=== PATIENT | female | born 1980 | race African-American/Black ===

== ENCOUNTER 2019-01-29 08:00 | Inpatient (IN) | payer OTHER ==
[2019-01-29 09:10] LABS: BASO % 0.8 % (0-2.0); EOS % 1.2 % (0-4.5); HEMATOCRIT 26.9 % (32.4-45.2); HEMOGLOBIN 8.7 GM/dL (10.7-15.3); LYMPH % 28.6 % (8-40); MCH 27.3 pg (25.7-33.7); MCHC 32.3 g/dl (32.0-36.0); MEAN CELL VOLUME 84.4 fl (80-96); MEAN PLT VOLUME 8.1 fl (7.5-11.1); MONO % 11.5 % (3.8-10.2); NEUT % 57.9 % (42.8-82.8); PLATELET COUNT 231 K/MM3 (134-434); RBC 3.19 M/mm3 (3.60-5.2); WHITE BLOOD COUNT 4.3 K/mm3 (4.0-10.0)
[2019-01-29] MEDS ORDERED: DEXTROSE 5%-LACTATED RINGERS 1,000 ML IV SCH (09:15)
[2019-01-29] MEDS ORDERED: PROMETHAZINE HCL 25 MG/1 ML VIAL IVPUSH ONE (09:16)
[2019-01-29] MEDS ORDERED: BUTORPHANOL TARTRATE 1 MG/ML VIAL IVPB ONE (09:16)
[2019-01-29 09:30] LABS: BLOOD UREA NITROGEN 7.2 mg/dL (7-18); CREATININE 0.7 mg/dL (0.55-1.3); POTASSIUM 3.8 mmol/L (3.5-5.1)
[2019-01-29] MEDS ORDERED: OXYTOCIN 30 UNITS in 0.9% NS 30 UNIT/500 ML INFUS.BAG IVPB SCH (09:30)
[2019-01-29 09:37] LABS: INR 0.92 (0.83-1.09); PROTHROMBIN TIME (PATIENT) 10.9 SEC (9.7-13.0)
[2019-01-29 09:39] LABS: ACTIVATED PTT 24.8 SECONDS (25.2-36.5)
[2019-01-29 09:51] VITALS: BMI 31.3
[2019-01-29] MEDS ORDERED: PROMETHAZINE HCL 25 MG/1 ML VIAL ONE (14:03)
[2019-01-29] MEDS ORDERED: BUTORPHANOL TARTRATE 1 MG/ML VIAL ONE ×2 (14:03)
[2019-01-29] MEDS ORDERED: LIDOCAINE HCL 1% PRESERVATIVE FREE - 30ML VIAL ONE (15:09)
[2019-01-29] MEDS ORDERED: OXYTOCIN 20 UNITS in 0.9% NS 20 UNIT/1,000 ML INFUS.BAG IV ONE ×2 (15:09→17:39)
[2019-01-29] MEDS: OXYTOCIN 20 UNITS in 0.9% NS 20 UNIT/1,000 ML INFUS.BAG IV SCH ×2 (15:15→17:41)
[2019-01-29] MEDS ORDERED: BISACODYL 10 MG SUPP.RECT RC PRN (16:19)
[2019-01-29] MEDS ORDERED: WITCH HAZEL 50% (TUCKS) 40 PAD/JAR PAD TP PRN (16:19)
[2019-01-29] MEDS ORDERED: BENZOCAINE 28 GM HEMORRHOIDAL OINTMENT TP PRN (16:19)
[2019-01-29] MEDS ORDERED: BENZOCAINE 20% 57 GM BOTTLE TP PRN (16:19)
[2019-01-29] MEDS ORDERED: METHYLERGONOVINE MALEATE 0.2 MG/1 ML AMP IM PRN (16:19)
[2019-01-29] MEDS ORDERED: oxyCODONE HCL 5 MG TABLET PO PRN (16:19)
[2019-01-29] MEDS ORDERED: IBUPROFEN 600 MG TABLET (FP) PO PRN (16:19)
--- NOTE | 2019-01-29 16:27 | HP ---
Past Medical History - Admission Chief Complaint: favarable cervix for induction History Source: Patient Limitations to Obtaining History: No Limitations - Past Medical History MARKETING AGENT: No: Alzheimer's, CVA, Dementia, Migraine, Multiple Sclerosis, Peripheral Neuropathy, Parkinson's, Seizure, Syncope, TIA, Vertigo, Other Cardiovascular: No: AFIB, Aneurysm, Aortic Insufficiency, Aortic Stenosis, CAD, CHF, Deep Vein Thrombosis, HTN, Hyperlipdemia, NV, Mitral Insufficiency, Mitral Stenosis, Murmur, Pulmonary Hypertension, Other Pulmonary: No: Asthma, Bronchitis, Cancer, COPD, O2 Dependent, Pneumonia, Previously Intubated, Pulmonary Embolus, Pulmonary Fibrosis, Sleep Apnea, Other Gastrointestinal: No: Ascites, Cancer, Constipation, Crohn's Disease, Diverticulitis, Diverticulosis, Esophageal Varices, Gastritis, GERD, GI Bleed, Hemorrhoids, Hiatal Hernia, Inflamatory Bowel Disease, Irritable Bowel Disease, Pancreatitis, Peptic Ulcer Disease, Ulcerative Colitis, Other Hepatobiliary: No: Cirrhosis, Cholelithiasis, Cholecystitis, Choledocholithiasis , Hepatitis A, Hepatitis B, Hepatitis C, Other Renal/: No: Renal Failure, Renal Inusuff, BPH, Cancer, Hematuria, Hemodialysis , Neurogenic Bladder, Renal Calculi, UTI, Other Reproductive: No: Ectopic , Endometriosis, Fibroids, PID, Polycystic Ovary Syndrome, Postmenopausal, Other ...: 9 ...Para: 3 ...Term: 3 ...: 0 ...Spon : 0 ...Induced : 5 ...Multiple Gestation: 0 ...LMP: 04/26/18 ... Weeks Gestation by Dates: 39.5 ...EDC by Dates: 01/31/19 Heme/Onc: No: Anemia, B12 Deficiency, Bleeding Disorder, Cancer, Current Chemotherapy, Current Radiation Therapy, Hemochromatosis, Hypercoaguable State, Myeloproliferative Synd, Sickle Cell Disease, Sickle Cell Trait, Thrombocytopenia, Other Infectious Disease: No: AIDS, C-Diff, Herpes Zoster, HIV, MRSA, STD's, Tuberculosis, VREF, Other Psych: No: Addictions, Anxiety, Bipolar, Depression, Panic, Psychosis, Schizophrenia, Other Musculoskeletal: No: Bursitis, Chronic low back pain, Hemiparesis, Hemiplegia, Osteoarthritis, Paraplegia, Other Rheumatology: No: Fibromyalgia, Gout, Lupus, Rheumatoid Arthritis, Sarcoidosis, Vasculitis, Other ENT: No: Allergic Rhinitis, Sinusitis, Other Endocrine: No: [place]'s Disease, [place]'s Disease, Diabetes Insipidus, Diabetes Mellitus, Hyperparathyroidism, Hyperthyroidism, Hypothyroidism, Osteopenia, SIADH, Other Dermatology: No: Basal Cell, Cellulitis, Eczema, Melanoma, Psoriasis, Squamous Cell, Other - Past Surgical History Past Surgical History: No: None, AAA Repair, AICD, Amputation, Appendectomy, Arthrosocopy, AV Fistula/Graft, Bariatric Surgery, Breast Biopsy, Bypass, CABG, Carotid Endarterectomy, Cataract Removal, Cholecystectomy, Colectomy, Colonoscopy, Colostomy, Craniotomy, , Cystectomy, Hernia Repair, Hysterectomy, Ileal Conduit, Ileosotomy, Joint Replacement, Kidney Transplant, Laminectomy, Liver Transplant, Mastectomy, Nephrectomy, Oopherectomy, Orchiectomy, Permanent Pacemaker, Prostatectomy, Splenectomy, Stent, Thoracotomy , TURP, Tonsillectomy, Tubal Ligation, Upper Endoscopy, Valve Replacement, Vasectomy, Vein Stripping/Ligation Hx Myomectomy: No Hx Transabdominal Cerclage: No - Advance Directives Advance Directives: Yes: Living Will - Smoking History Smoking history: Never smoked Have you smoked in the past 12 months: No - Alcohol/Substance Use Hx Alcohol Use: No History of Substance Use: reports: None - Social History Usual Living Arrangement: Yes: With Significant Other Do you think of yourself as: Straight/Heterosexual ADL: Independent History of Recent Travel: No Home Medications - Allergies Allergies/Adverse Reactions: Allergies Allergy/AdvReac Type Severity Reaction Status Date / Time NSAIDS (Non-Steroidal Allergy Severe Swelling Verified 01/29/19 08:57 Anti-Inflamma - Home Medications Home Medications: Ambulatory Orders Pnv No.95/Ferrous Fum/Folic AC [ Vitamin Tablet] 1 each PO DAILY Family Medical History Family History: Denies Review of Systems - Review of Systems Constitutional: reports: No Symptoms Eyes: reports: No Symptoms HENT: reports: No Symptoms Neck: reports: No Symptoms Cardiovascular: reports: No Symptoms Respiratory: reports: No Symptoms Gastrointestinal: reports: No Symptoms Genitourinary: reports: No Symptoms Breasts: reports: No Symptoms Reported Musculoskeletal: reports: No Symptoms Integumentary: reports: No Symptoms Neurological: reports: No Symptoms Endocrine: reports: No Symptoms Hematology/Lymphatic: reports: No Symptoms Psychiatric: reports: No Symptoms Physical Exam - Maternity Vital Signs: Vital Signs Temperature 98.1 F 01/29/19 16:00 Pulse Rate 77 01/29/19 16:00 Respiratory Rate 20 01/29/19 16:00 Blood Pressure 155/88 01/29/19 16:00 O2 Sat by Pulse Oximetry (%) 100 01/29/19 16:00 Constitutional: Yes: Well Nourished, No Distress, Calm Eyes: Yes: WNL, Conjunctiva Clear, EOM Intact HENT: Yes: WNL, Atraumatic, Normocephalic Neck: Yes: WNL, Supple, Trachea Midline Cardiovascular: Yes: WNL, Regular Rate and Rhythm Lungs: Clear to auscultation Breast(s): Yes: WNL - Abdominal Exam/OB Fundal Height: 38 Number of Fetuses: Single Presentation: Vertex Contractions: Yes Regularity: Irregular Intensity: Mild Monitor Mode: External Heart Rate Location: [facility] Category: I Accelerations: Uniform Decelerations: None - Vaginal Exam/OB Vaginal Bleediing: No Speculum Exam: No Dilatation (cm): 2 Effacement (%): 60 Amniotic Membrane Status: Intact Presentation: Vertex/Position Station: -2 - Physical Exam Musculoskeletal: Yes: WNL Extremities: Yes: WNL Edema: Yes Edema: LUE: 1+, RUE: 1+, LLE: 1+, RLE: 1+ Integumentary: Yes: WNL Deep Tendon Reflex Grade: Normal +2 ...Motor Strength: WNL Psychiatric: Yes: WNL, Alert, Oriented - Labs Lab Results: CBC, BMP 01/29/19 08:45 01/29/19 08:45 Hemorrhage Risk Assessment - Risk Factors Medium Risk Factors: Yes: None Risk Score: 1 Risk Level: Medium Risk Assessment/Plan favarable cervix for induction
--- NOTE | 2019-01-29 16:29 | PN ---
Progress Note (short form) - Note Progress Note: 2pm 3 cm , 70 %, -2, arom, nst reactive, s/p stadol. continue laboring
--- NOTE | 2019-01-29 16:30 | PN ---
Delivery - Delivery Vaginal Delivery: No Problems Type of Anesthesia: None Episiotomy/Laceration: Vaginal Extension/lac, 1st degree EBL (cc): 200 Delivery, Single - Stages of Labor Date 1st Stage Initiatied: 01/29/19 Time 1st Stage Initiated: 12:00 Date 2nd Stage Initiated: 01/29/19 Time 2nd Stage Initiated: 15:05 Date of Delivery: 01/29/19 Time of Delivery: 15:13 Time Placenta Delivered: 15:15 - Condition of Infant Product Info Specialist/White Goods Appliance Tech Present: No Gender: Female Weight: 3.118 kg Position: Right, OA Total Hours ROM (Hrs/Mins): 51 min - [place] Feeding Plan Initial Plan: Elected not to breastfeed exclusively throughout hospitalization Benefits of Exclusively reinforced: Yes - Additional Information: no complications, precip delivery
[2019-01-29] MEDS: NIFEdipine E.R. 30 MG TABLET (FP) PO SCH (17:03)
[2019-01-29] MEDS: ACETAMINOPHEN 325 MG TABLET (FP) PO PRN ×2 (18:11→21:22)
[2019-01-30] MEDS: ACETAMINOPHEN 325 MG TABLET (FP) PO PRN ×3 (00:18→18:01)
[2019-01-30] MEDS: OXYTOCIN 20 UNITS in 0.9% NS 20 UNIT/1,000 ML INFUS.BAG IV SCH (00:19)
[2019-01-30 08:07] LABS: BASO % 0.7 % (0-2.0); EOS % 1.2 % (0-4.5); HEMATOCRIT 26.7 % (32.4-45.2); HEMOGLOBIN 8.7 GM/dL (10.7-15.3); LYMPH % 15.4 % (8-40); MCH 27.3 pg (25.7-33.7); MCHC 32.5 g/dl (32.0-36.0); MEAN CELL VOLUME 84.1 fl (80-96); MEAN PLT VOLUME 8.7 fl (7.5-11.1); MONO % 9.6 % (3.8-10.2); NEUT % 73.1 % (42.8-82.8); PLATELET COUNT 215 K/MM3 (134-434); RBC 3.17 M/mm3 (3.60-5.2); RDW 14.9 % (11.6-15.6); WHITE BLOOD COUNT 7.5 K/mm3 (4.0-10.0)
[2019-01-30] MEDS: NIFEdipine E.R. 30 MG TABLET (FP) PO SCH (13:20)
--- NOTE | 2019-01-30 13:45 | PN ---
Post Progress Note Post Day: 1 Type of Delivery: Vital Signs: Vital Signs Temperature 98.5 F 01/30/19 09:00 Pulse Rate 78 01/30/19 09:00 Respiratory Rate 18 01/30/19 09:00 Blood Pressure 130/81 01/30/19 09:00 O2 Sat by Pulse Oximetry (%) 99 01/29/19 16:30 Breast Exam: Yes: Soft Uterus: Yes: Fundus Firm, Fundus below umbilicus Abdomen/GI: Yes: Abdomen soft, Passing flatus, Tolerating PO Lochia: Yes: Serosa Lochia, amount: Small Extremities: Yes: Calves non-tender Perineum: Yes: Laceration Activity: Ambulating - Labs Labs: CBC WBC 7.5 K/mm3 (4.0-10.0) 01/30/19 07:35 RBC 3.17 M/mm3 (3.60-5.2) L 01/30/19 07:35 Hgb 8.7 GM/dL (10.7-15.3) L 01/30/19 07:35 Hct 26.7 % (32.4-45.2) L 01/30/19 07:35 MCV 84.1 fl (80-96) 01/30/19 07:35 MCH 27.3 pg (25.7-33.7) 01/30/19 07:35 MCHC 32.5 g/dl (32.0-36.0) 01/30/19 07:35 RDW 14.9 % (11.6-15.6) 01/30/19 07:35 Plt Count 215 K/MM3 (134-434) 01/30/19 07:35 MPV 8.7 fl (7.5-11.1) 01/30/19 07:35 Absolute Neuts (auto) 5.5 K/mm3 (1.5-8.0) 01/30/19 07:35 Neutrophils % 73.1 % (42.8-82.8) D 01/30/19 07:35 Lymphocytes % 15.4 % (8-40) D 01/30/19 07:35 Monocytes % 9.6 % (3.8-10.2) 01/30/19 07:35 Eosinophils % 1.2 % (0-4.5) 01/30/19 07:35 Basophils % 0.7 % (0-2.0) 01/30/19 07:35 Nucleated RBC % 0 % (0-0) 01/30/19 07:35
--- NOTE | 2019-01-30 13:48 | DS ---
Physical Exam-[employer]ISTR[facility] [employer] Vital Signs: Vital Signs Temperature 98.5 F 01/30/19 09:00 Pulse Rate 78 01/30/19 09:00 Respiratory Rate 18 01/30/19 09:00 Blood Pressure 130/81 01/30/19 09:00 O2 Sat by Pulse Oximetry (%) 99 01/29/19 16:30 Constitutional: Yes: Well Nourished, No Distress, Calm Eyes: Yes: WNL, Conjunctiva Clear, EOM Intact HENT: Yes: WNL, Atraumatic, Normocephalic Neck: Yes: WNL, Supple, Trachea Midline Cardiovascular: Yes: WNL, Regular Rate and Rhythm Respiratory: Yes: WNL, Regular, CTA Bilaterally Gastrointestinal: Yes: WNL, Normal Bowel Sounds, Soft ...Rectal Exam: Yes: WNL Renal/: Yes: WNL Pelvis: Yes: WNL External Genitalia: Yes: Normal Internal Exam Deferred: Yes Vaginal Exam: Yes: Normal Cervix: Yes: Normal Uterus: Yes: Normal Adnexa: Normal: Bilateral ....Post : Yes: Uterus firm, Uterus non-tender Breast(s): Yes: WNL Musculoskeletal: Yes: WNL Extremities: Yes: WNL Edema: Yes Edema: LUE: 1+, RUE: 1+, LLE: 1+, RLE: 1+ Integumentary: Yes: WNL Wound/Incision: Yes: Clean/Dry, Well Approximated Neurological: Yes: WNL, Alert, Oriented ...Motor Strength: WNL Psychiatric: Yes: WNL, Alert, Oriented Labs: CBC, BMP 01/30/19 07:35 01/29/19 08:45 Delivery - Delivery Vaginal Delivery: No Problems Type of Anesthesia: None Episiotomy/Laceration: Vaginal Extension/lac, 1st degree EBL (cc): 200 Delivery, Single - Stages of Labor Date 1st Stage Initiatied: 01/29/19 Time 1st Stage Initiated: 12:00 Date 2nd Stage Initiated: 01/29/19 Time 2nd Stage Initiated: 15:05 Date of Delivery: 01/29/19 Time of Delivery: 15:13 Time Placenta Delivered: 15:15 - Condition of Cold Roll Operator/Transverse Abdominal Muscle Surgeon Present: No Infant Gender: Female Weight: 3.118 kg Position: Right, OA Total Hours ROM (Hrs/Mins): 51 min - 1 Minute Total Score: 9 5 Minutes Total Score: 9 - Feeding Plan Initial Plan: Elected not to breastfeed exclusively throughout hospitalization Benefits of Exclusively reinforced: Yes Discharge Summary Problems reviewed: Yes Reason For Visit: INDUCTION OF LABOR Procedures: Principal: Other Procedures: none Hospital Course: uneventful Health Concerns: none Plan of Treatment: oob as much as possible Goals: return to work in 6 weeks - Instructions Diet, Activity, Other Instructions: regular, routine post care Disposition: HOME - Home Medications Comprehensive Discharge Medication List: Ambulatory Orders Pnv No.95/Ferrous Fum/Folic AC [ Vitamin Tablet] 1 each PO DAILY
[2019-01-30] MEDS ORDERED: SENNOSIDES/DOCUSATE COMBO (SENNA PLUS) TABLET (UD) PO PRN (22:00)
[2019-01-31] MEDS: ACETAMINOPHEN 325 MG TABLET (FP) PO PRN ×2 (01:37→06:03)
--- NOTE | 2019-01-31 10:28 | PN ---
Progress Note, Physician Chief Complaint: PPD # 2. Ready for discharge. Borderline HYN; pt. is on Procardia XL 30 mg. - Current Medication List Current Medications: Active Medications Acetaminophen (Tylenol -) 650 mg PO Q3H PRN PRN Reason: PAIN Last Admin: 01/31/19 06:03 Dose: 650 mg Benzocaine (Americaine 20% [place] -) 1 spray TP PRN PRN PRN Reason: PAIN Benzocaine (Americaine Ointment -) 1 applic TP PRN PRN PRN Reason: PAIN Bisacodyl (Dulcolax Suppository -) 10 mg RC PRN PRN PRN Reason: CONSTIPATION Methylergonovine Maleate (Methergine Injection -) 0.2 mg IM Q4H PRN PRN Reason: EXCESSIVE BLEEDING (L&D) Nifedipine (Procardia Xl -) 30 mg PO DAILY AMBROSE Last Admin: 01/30/19 13:20 Dose: 30 mg Oxycodone HCl (Roxicodone -) 5 mg PO Q6H PRN PRN Reason: PAIN Senna/Docusate Sodium (Pericolace -) 2 tablet PO HS PRN PRN Reason: CONSTIPATION Last Admin: 01/30/19 23:47 Dose: 2 tablet Witch Betty/Glycerin (Tucks Pads -) 1 pad TP PRN PRN PRN Reason: PAIN - Objective Vital Signs: Vital Signs Temperature 98.5 F 01/30/19 22:00 Pulse Rate 85 01/31/19 06:00 Respiratory Rate 18 01/31/19 06:00 Blood Pressure 136/76 01/31/19 06:00 O2 Sat by Pulse Oximetry (%) 99 01/29/19 16:30 Constitutional: Yes: Well Nourished Eyes: Yes: WNL HENT: Yes: WNL Neck: Yes: WNL Cardiovascular: Yes: WNL Respiratory: Yes: WNL Gastrointestinal: Yes: WNL ...Rectal Exam: Yes: WNL Genitourinary: Yes: WNL Breast(s): Yes: WNL, Other (Sl. engorged. Bottle feeding. Discussed.) Musculoskeletal: Yes: WNL Extremities: Yes: WNL Edema: No Integumentary: Yes: WNL ...Motor Strength: WNL Psychiatric: Yes: WNL, Alert, Oriented Labs: CBC, BMP 01/30/19 07:35 01/29/19 08:45 INR, PTT INR 0.92 (0.83-1.09) 01/29/19 08:45 Problem List - Problems (1) Normal course Code(s): Z39.2 - ENCOUNTER FOR ROUTINE FOLLOW-UP (2) Borderline hypertension Code(s): R03.0 - ELEVATED BLOOD-PRESSURE READING, W/O DIAGNOSIS OF HTN Assessment/Plan PE: WNL. Breasts soft. Abdomen soft. Uterus well contracted, firm. Lochia WNL. No CVA, extrem. T. RN concerned w BP.147/83. No Rx for Procardia. ( She is delivered!) Discussed w Pt. Agree w d/cing Procardia. Pt. will check her BPs at home and call if elevated. Has the machine and knows how to do it. Routine PP instructions otherwise. Discharge today.
[2019-01-31] MEDS: NIFEdipine E.R. 30 MG TABLET (FP) PO SCH (10:53)
[2019-01-31 11:04] VITALS: TEMP 98.6
[2019-01-31 11:06] VITALS: BP 147/88; PULSE 93
== END 2019-01-31 15:30 | disposition home or self-care (01) | DRG 807 ==
LOC: JLDR 08:00 → J3W 18:06
PROVIDERS: ADMIT Obstetrics & Gynecology; ATTEND Obstetrics & Gynecology
PROC: 0HQ9XZZ Repair Perineum Skin, External Approach (ICD-10-PCS; principal; 2019-01-29)
PROC: 10E0XZZ Delivery of Products of Conception, External Approach (ICD-10-PCS; 2019-01-29)
DX: O70.0 First degree perineal laceration during delivery (principal); Z37.0 Single live birth; O16.5 Unspecified maternal hypertension, complicating the puerperium; Z3A.39 39 weeks gestation of pregnancy
CPT/HCPCS: 36415; 59409; 80048; 85025; 85610; 85730; 86593; 86850; 86900; 86901